=== PATIENT | female | born 1990 | race Caucasian/White ===

== ENCOUNTER 2016-11-19 08:38 | Emergency (ER) | payer SELFPAY ==
[~2016-11-19] VITALS: Ht 167.6 cm; Wt 55.0 kg
[2016-11-19 08:47] VITALS: BP 102/50; PULSE 121; RESP 26; TEMP 97.4; O2SAT 97
[2016-11-19] MEDS ORDERED: METH40TA PO (08:58)
[2016-11-19 09:05] VITALS: RESP 16; O2SAT 99
[2016-11-19] MEDS ORDERED: SODIUM CHLOR 0.9% 1000 ML INJ 1,000 ML IV SCH (09:08)
[2016-11-19] MEDS ORDERED: SODIUM CHLORIDE 0.9% FLUSH 10 ML FLUSH IV FLUSH PRN (09:15)
[2016-11-19] MEDS ORDERED: ONDANSETRON HCL 4 MG/2 ML VIAL IVP ONE (09:15)
[2016-11-19 09:40] LABS: AUTOMATED NEUTROPHIL # 7.8 TH/MM3 (1.8-7.7); BASOPHIL # 0.1 TH/MM3 (0-0.2); BASOPHIL % 0.6 % (0.0-2.0); EOSINOPHIL # 0.1 TH/MM3 (0-0.4); EOSINOPHIL % 0.6 % (0.0-4.0); HEMATOCRIT 48.5 % (35.0-46.0); HEMO FLAGS DIFF FINAL; LYMPHOCYTE # 2.5 TH/MM3 (1.0-4.8); MEAN CELL VOLUME 86.5 FL (80.0-100.0); MEAN CORPUSCULAR HEMOGLOBIN 29.5 PG (27.0-34.0); MEAN CORPUSCULAR HGB CONC 34.1 % (32.0-36.0); MONO % 7.2 % (0.0-8.0); NEUT % 69.6 % (16.0-70.0); PLATELET COUNT 339 TH/MM3 (150-450); RED CELL DISTRIBUTION WIDTH 13.5 % (11.6-17.2); WHITE BLOOD COUNT 11.2 TH/MM3 (4.0-11.0)
[2016-11-19 09:57] LABS: BICARBONATE 20.4 MEQ/L (21.0-32.0); POTASSIUM 3.5 MEQ/L (3.5-5.1)
[2016-11-19] MEDS ORDERED: LORazepam 2 MG/ML VIAL IV PUSH ONE (10:00)
--- NOTE | 2016-11-19 10:32 | PD ---
HPI Chief Complaint: Medical Clearance Time Seen by Provider: 08:58 Travel History International Travel<30 days: No Contact w/Intl Traveler<30days: No Traveled to known affect area: No History of Present Illness HPI Patient is a 26 year old female presents to the ER states that she hasn't had her methadone in "a while" and states that she is starting to withdrawal. Tachycardic and agitated on arrival is complaining that she can "feel the blood moving through her arms and her legs". States that she jsut moved to town and cannot find any mehtadone clinics in town. patient also admitted to nursing that she has been treating herself with street drugs. Denies CP/SOB/ABdominal pain. Endorses nausea without vomiting and endorses diarrhea. PFSH Past Medical History Medical History: Denies Significant Hx ?: Not LMP: 10/28/16 Past Surgical History Surgical History: No Previous Surgery Social History Alcohol Use: No Tobacco Use: Yes (ppd) Substance Use: No Allergies-Medications (Allergen,Severity, Reaction): Coded Allergies: No Known Allergies (Unverified , 11/19/16) Reported Meds & Prescriptions Reported Meds & Active Scripts Active Reported Methadone (Methadone HCl) 40 Mg Tab 60 Mg PO DAILY Review of Systems Except as stated in HPI: all other systems reviewed are Neg Physical Exam Narrative GENERAL: WD/WN agitated, but cooperative. SKIN: Warm and dry. HEAD: Atraumatic. Normocephalic. EYES: Pupils equal and round. No scleral icterus. No injection or drainage. ENT: No nasal bleeding or discharge. Mucous membranes pink and moist. NECK: Trachea midline. No JVD. CARDIOVASCULAR: Regular rhythm with tachycardia when she sits up or talks. No MGR. RESPIRATORY: No accessory muscle use. Clear to auscultation. Breath sounds equal bilaterally. GASTROINTESTINAL: Abdomen soft, non-tender, nondistended. Hepatic and splenic margins not palpable. MUSCULOSKELETAL: Extremities without clubbing, cyanosis, or edema. No obvious deformities. NEUROLOGICAL: Awake and alert. No obvious cranial nerve deficits. Motor grossly within normal limits. Five out of 5 muscle strength in the arms and legs. Normal speech. PSYCHIATRIC: Appropriate mood and affect; insight and judgment normal. Data Data Last Documented VS Vital Signs Date Time Temp Pulse Resp B/P (MAP) Pulse Ox O2 Delivery O2 Flow Rate FiO2 11/19/16 11:15 10/7/17 11:00 82 16 97 Room Air 11/19/16 08:47 97.4 Orders Orders Basic Metabolic Panel (Bmp) (11/19/16 09:08) Beta Hcg (Quant/Titer) (11/19/16 09:08) Complete Blood Count With Diff (11/19/16 09:08) Iv Access Insert/Monitor (11/19/16 09:08) Ecg Monitoring (11/19/16 09:08) Oximetry (11/19/16 09:08) Ondansetron Inj (Zofran Inj) (11/19/16 09:15) Sodium Chlor 0.9% 1000 Ml Inj (Ns 1000 M (11/19/16 09:08) Sodium Chloride 0.9% Flush (Ns Flush) (11/19/16 09:15) Electrocardiogram (11/19/16 09:08) Lorazepam Inj (Ativan Inj) (11/19/16 10:00) Labs Laboratory Tests Test 11/19/16 09:20 White Blood Count 11.2 TH/MM3 Red Blood Count 5.60 MIL/MM3 Hemoglobin 16.5 GM/DL Hematocrit 48.5 % Mean Corpuscular Volume 86.5 FL Mean Corpuscular Hemoglobin 29.5 PG Mean Corpuscular Hemoglobin Concent 34.1 % Red Cell Distribution Width 13.5 % Platelet Count 339 TH/MM3 Mean Platelet Volume 8.7 FL Neutrophils (%) (Auto) 69.6 % Lymphocytes (%) (Auto) 22.0 % Monocytes (%) (Auto) 7.2 % Eosinophils (%) (Auto) 0.6 % Basophils (%) (Auto) 0.6 % Neutrophils # (Auto) 7.8 TH/MM3 Lymphocytes # (Auto) 2.5 TH/MM3 Monocytes # (Auto) 0.8 TH/MM3 Eosinophils # (Auto) 0.1 TH/MM3 Basophils # (Auto) 0.1 TH/MM3 CBC Comment DIFF FINAL Differential Comment Blood Urea Nitrogen 13 MG/DL Creatinine 0.97 MG/DL Random Glucose 89 MG/DL Calcium Level 9.6 MG/DL Sodium Level 139 MEQ/L Potassium Level 3.5 MEQ/L Chloride Level 108 MEQ/L Carbon Dioxide Level 20.4 MEQ/L Anion Gap 11 MEQ/L Estimat Glomerular Filtration Rate 71 ML/MIN Human Chorionic Gonadotropin, Quant 1 MIU/ML MDM Medical Decision Making Medical Screen Exam Complete: Yes Emergency Medical Condition: Yes Differential Diagnosis Agitation, opiate withdrawal, dehydration, electrolyte imbalance. Narrative Course Patient roomed in ED, given zofran, fluids, ativan. Feeling much better on reassess. Her labs are reassuring. Discussed need for follow up with a PCP, [facility] or [facility]. She is stable for discharge. Diagnosis Primary Impression: Opiate withdrawal Referrals: [facility] Disposition: 01 DISCHARGE HOME Condition: Stable Claude Silva MD Nov 19, 2016 10:32
[2016-11-19 11:00] VITALS: BP 110/78; PULSE 82; RESP 16; O2SAT 97
--- NOTE | 2016-11-19 14:18 | EKG ---
Date Performed: 11/19/2016 Time Performed: 09:35:41 PTAGE: 26 years EKG: Sinus rhythm POSSIBLE RIGHT VENTRICULAR CONDUCTION DELAY MINIMAL ST DEPRESSION BORDERLINE ECG NO PREVIOUS TRACING DOCTOR: Prasad Peralta Interpretating Date/Time 11/19/2016 14:14:31
== END 2016-11-19 11:15 | disposition home or self-care (01) ==
LOC: NEPC 08:38
DX: F11.23 Opioid dependence with withdrawal (principal)
CPT/HCPCS: 80048; 84702; 85025; 93005; 96361; 96374; 96375; 99284; J2060; J2405; J7030

== ENCOUNTER 2017-03-05 12:01 | Emergency (ER) | payer SELFPAY ==
[~2017-03-05] VITALS: Ht 170.2 cm; Wt 50.0 kg
[~2017-03-05 12:01] MED LIST: METH40TA PO
[2017-03-05 12:03] VITALS: BP 132/82; PULSE 154; RESP 16; TEMP 97.6; O2SAT 97
--- NOTE | 2017-03-05 12:39 | PD ---
HPI Chief Complaint: Cold / Flu Symptoms Time Seen by Provider: 12:26 Travel History International Travel<30 days: No Contact w/Intl Traveler<30days: No Traveled to known affect area: No History of Present Illness HPI 26-year-old female presents the emergency department with flulike symptoms which suddenly started this morning. Patient states congestion, sore throat, and "shakiness". Patient has obvious IV drug use cleary on both upper extremities. When asked the patient days for questionable regarding IV drug use but admits to using heroin last evening. Patient vital signs shows her to be afebrile, however heart rate was 153. Blood pressure stable. She denies significant chest pain or cough. She has no known drug allergies. PFSH Past Medical History ?: Not Social History Alcohol Use: No Tobacco Use: Yes (ppd) Substance Use: No Allergies-Medications (Allergen,Severity, Reaction): Coded Allergies: No Known Allergies (Unverified Allergy, Unknown, 03/05/17) Reported Meds & Prescriptions Reported Meds & Active Scripts Active Reported Methadone (Methadone HCl) 40 Mg Tab 60 Mg PO DAILY Review of Systems Except as stated in HPI: all other systems reviewed are Neg General / Constitutional: Positive: Chills, No: Fever Eyes: No: Visual changes HENT: Positive: Headaches, Sore Throat, Rhinitis, Rhinorrhea, Congestion, No: Nosebleed, Neck Stiffness, Neck Pain, Dental Difficulties, Earache Cardiovascular: No: Chest Pain or Discomfort Respiratory: No: Cough, Shortness of Breath, Wheezing Gastrointestinal: No: Nausea, Vomiting, Diarrhea, Abdominal Pain Genitourinary: No: Dysuria Musculoskeletal: No: Pain Skin: Positive Lesions (old injection cleary, but no acute signs of cellulitis or abscess.), No Rash Neurologic: No: Weakness Psychiatric: No: Depression Endocrine: No: Polydipsia Hematologic/Lymphatic: No: Easy Bruising Physical Exam Narrative GENERAL: Patient appears anxious and jittery, and appears under the influence. SKIN: Warm and dry. Normal color. Normal turgor. There is multiple old IV drug use cleary to both upper extremities without acute signs of cellulitis or abscess. HEAD: Atraumatic. Normocephalic. EYES: Pupils equal and round. No scleral icterus. No injection or drainage. ENT: No nasal bleeding or discharge. Mucous membranes pink and moist. Pharynx is clear. Airway is patent. TMs are clear bilaterally. NECK: Trachea midline. Supple and nontender. CARDIOVASCULAR: Tachycardic rate and regular rhythm. RESPIRATORY: No accessory muscle use. Clear to auscultation. Breath sounds equal bilaterally. GASTROINTESTINAL: Abdomen soft, non-tender, nondistended. Hepatic and splenic margins not palpable. MUSCULOSKELETAL: Extremities without clubbing, cyanosis, or edema. No obvious deformities. NEUROLOGICAL: Awake and alert. No obvious cranial nerve deficits. Motor grossly within normal limits. Five out of 5 muscle strength in the arms and legs. Normal speech. PSYCHIATRIC: Appropriate mood and affect; insight and judgment normal. Data Data Last Documented VS Vital Signs Date Time Temp Pulse Resp B/P (MAP) Pulse Ox O2 Delivery O2 Flow Rate FiO2 03/05/17 13:27 100 Room Air 03/05/17 12:52 135 18 03/05/17 12:03 97.6 Orders Orders Sepsis Workup Initiated (03/05/17 ) Electrocardiogram (03/05/17 12:45) Complete Blood Count With Diff (03/05/17 12:45) Comprehensive Metabolic Panel (03/05/17 12:45) Prothrombin Time / Inr (Pt) (03/05/17 12:45) Act Partial Throm Time (Ptt) (03/05/17 12:45) Lactic Acid Sepsis Protocol (03/05/17 12:45) Magnesium (Mg) (03/05/17 12:45) Urinalysis - C+S If Indicated (03/05/17 12:45) Influenzae A/B Antigen (03/05/17 12:45) Blood Culture (03/05/17 12:45) Chest, Single Ap (03/05/17 12:45) Blood Glucose (03/05/17 12:45) Ecg Monitoring (03/05/17 12:45) Iv Access Insert/Monitor (03/05/17 12:45) Oximetry (03/05/17 12:45) Oxygen Administration (03/05/17 12:45) Sodium Chlor 0.9% 1000 Ml Inj (Ns 1000 M (03/05/17 12:45) Sodium Chlor 0.9% 1000 Ml Inj (Ns 1000 M (03/05/17 12:45) Lorazepam Inj (Ativan Inj) (03/05/17 12:45) Ed Urine Pregnancytest Poc (03/05/17 12:53) Labs Laboratory Tests Test 03/05/17 13:12 White Blood Count 13.6 TH/MM3 Red Blood Count 4.55 MIL/MM3 Hemoglobin 14.3 GM/DL Hematocrit 39.6 % Mean Corpuscular Volume 87.1 FL Mean Corpuscular Hemoglobin 31.3 PG Mean Corpuscular Hemoglobin Concent 36.0 % Red Cell Distribution Width 13.3 % Platelet Count 351 TH/MM3 Mean Platelet Volume 8.0 FL Neutrophils (%) (Auto) 70.9 % Lymphocytes (%) (Auto) 19.4 % Monocytes (%) (Auto) 8.6 % Eosinophils (%) (Auto) 0.6 % Basophils (%) (Auto) 0.5 % Neutrophils # (Auto) 9.7 TH/MM3 Lymphocytes # (Auto) 2.6 TH/MM3 Monocytes # (Auto) 1.2 TH/MM3 Eosinophils # (Auto) 0.1 TH/MM3 Basophils # (Auto) 0.1 TH/MM3 CBC Comment AUTO DIFF Differential Comment AUTO DIFF CONFIRMED Prothrombin Time 10.3 SEC Prothromb Time International Ratio 1.0 RATIO Activated Partial Thromboplast Time 29.0 SEC Blood Urea Nitrogen 6 MG/DL Creatinine 0.62 MG/DL Random Glucose 86 MG/DL Total Protein 7.8 GM/DL Albumin 3.5 GM/DL Calcium Level 8.8 MG/DL Magnesium Level 2.2 MG/DL Alkaline Phosphatase 89 U/L Aspartate Amino Transf (AST/SGOT) 35 U/L Alanine Aminotransferase (ALT/SGPT) 72 U/L Total Bilirubin 0.9 MG/DL Sodium Level 133 MEQ/L Potassium Level 3.9 MEQ/L Chloride Level 103 MEQ/L Carbon Dioxide Level 22.7 MEQ/L Anion Gap 7 MEQ/L Estimat Glomerular Filtration Rate 118 ML/MIN Lactic Acid Level 0.5 mmol/L [facility] Medical Decision Making Medical Screen Exam Complete: Yes Emergency Medical Condition: Yes Medical Record Reviewed: Yes Differential Diagnosis Possible sepsis. Influenza. Substance abuse. Narrative Course Labs ordered per sepsis protocol. IV access is obtained patient is given 1 mg lorazepam IV as well as 2 L normal saline bolus. Labs ordered including CBC, CMP, lactic acid, blood cultures 2, urinalysis. Rapid influenza was ordered as well as chest x-ray. Patient got 1 L of normal saline bolus. CBC is unremarkable, CMP is unremarkable, lactic acid is normal. Rapid influenza is negative. Chest x-ray is unremarkable. Patient was to leave, and I can find no reason medically to keep her here based on the labs that I have received. Urinalysis was never obtained from the patient. Patient is felt stable for discharge. Diagnosis Primary Impression: IV drug abuse Referrals: [facility] Patient Instructions: General Instructions, Polysubstance Abuse (ED) Med/Other Pt SpecificInfo: No Meds Exist/No RX given Disposition: 01 DISCHARGE HOME Condition: Stable Bairon Martinez Mar 05, 2017 12:39
[2017-03-05] MEDS ORDERED: SODIUM CHLOR 0.9% 1000 ML INJ 1,000 ML IV ONE (12:45)
[2017-03-05] MEDS ORDERED: SODIUM CHLOR 0.9% 1000 ML INJ 800 ML IV ONE (12:45)
[2017-03-05] MEDS ORDERED: LORazepam 2 MG/ML VIAL IV PUSH ONE (12:45)
--- NOTE | 2017-03-05 13:15 | RADRPT ---
EXAM DATE/TIME: 03/05/2017 13:07 [facility] COMPARISON: No previous studies available for comparison. INDICATIONS : Fever. Chest pain. MEDICAL HISTORY : None. SURGICAL HISTORY : None. ENCOUNTER: Initial ACUITY: 1 week PAIN SCORE: 5/10 LOCATION: Bilateral chest FINDINGS: The lungs are clear without infiltrate, nodule, or mass. There is no appreciable pleural effusion fo r technique. Heart and mediastinum are unremarkable. CONCLUSION: No acute cardiopulmonary disease. Luis F Lake MD on March 05, 2017 at 13:13 Board Certified Radiologist. This report was verified electronically.
[2017-03-05 13:27] VITALS: O2SAT 100
[2017-03-05 13:28] LABS: AUTOMATED NEUTROPHIL # 9.7 TH/MM3 (1.8-7.7); BASOPHIL # 0.1 TH/MM3 (0-0.2); BASOPHIL % 0.5 % (0.0-2.0); EOSINOPHIL # 0.1 TH/MM3 (0-0.4); EOSINOPHIL % 0.6 % (0.0-4.0); HEMATOCRIT 39.6 % (35.0-46.0); HEMOGLOBIN 14.3 GM/DL (11.6-15.3); LYMPH % 19.4 % (9.0-44.0); LYMPHOCYTE # 2.6 TH/MM3 (1.0-4.8); MEAN CELL VOLUME 87.1 FL (80.0-100.0); MEAN CORPUSCULAR HEMOGLOBIN 31.3 PG (27.0-34.0); MONO % 8.6 % (0.0-8.0); MONOCYTE # 1.2 TH/MM3 (0-0.9); NEUT % 70.9 % (16.0-70.0); PLATELET COUNT 351 TH/MM3 (150-450); RED BLOOD COUNT 4.55 MIL/MM3 (4.00-5.30); RED CELL DISTRIBUTION WIDTH 13.3 % (11.6-17.2); WHITE BLOOD COUNT 13.6 TH/MM3 (4.0-11.0)
[2017-03-05 13:35] LABS: PROTHROMBIN TIME - PATIENT 10.3 SEC (9.8-11.6)
[2017-03-05 13:42] LABS: ALBUMIN 3.5 GM/DL (3.4-5.0); ALT (GPT) 72 U/L (10-53); AST (GOT) 35 U/L (15-37); BICARBONATE 22.7 MEQ/L (21.0-32.0); BLOOD UREA NITROGEN 6 MG/DL (7-18); CALCIUM 8.8 MG/DL (8.5-10.1); CHLORIDE 103 MEQ/L (98-107); CREATININE 0.62 MG/DL (0.50-1.00); GLOMERULAR FILTRATION RATE 118 ML/MIN (>89); GLUCOSE,RANDOM 86 MG/DL (74-106); MAGNESIUM 2.2 MG/DL (1.5-2.5); SODIUM (NA) 133 MEQ/L (136-145)
[2017-03-05 13:45] LABS: ALKALINE PHOSPHATASE 89 U/L (45-117); TOTAL BILIRUBIN ADULT 0.9 MG/DL (0.2-1.0); TOTAL PROTEIN 7.8 GM/DL (6.4-8.2)
--- NOTE | 2017-03-06 20:27 | EKG ---
Date Performed: 03/05/2017 Time Performed: 13:10:50 PTAGE: 26 years EKG: SINUS TACHYCARDIA POSSIBLE RIGHT VENTRICULAR CONDUCTION DELAY Compared to previous tracing, the patient is now tachycardic ABNORMAL RHYTHM ECG PREVIOUS TRACING : 11/19/2016 09.35 DOCTOR: Alma Pope Interpretating Date/Time 03/06/2017 20:25:34
== END 2017-03-05 15:15 | disposition home or self-care (01) ==
LOC: NEPD 12:01
DX: F19.10 Other psychoactive substance abuse, uncomplicated (principal); J02.9 Acute pharyngitis, unspecified; R07.9 Chest pain, unspecified; R00.0 Tachycardia, unspecified
CPT/HCPCS: 71045; 80053; 83605; 83735; 85025; 85610; 85730; 87804; 93005; 96361; 96374; 99285; J2060; J7030

== ENCOUNTER 2017-06-07 23:34 | Observation (INO) | payer SELFPAY ==
[~2017-06-07] VITALS: Ht 170.2 cm; Wt 52.0 kg
[2017-06-07 23:52] VITALS: BP 130/74; PULSE 93; RESP 18; TEMP 98.1; O2SAT 96
[2017-06-08 01:00] LABS: BACTERIA, URINE RARE /hpf; BILIRUBIN, URINE NEG (NEG); BLOOD, URINE NEG (NEG); GLUCOSE,URINE NEG (NEG); KETONE, URINE NEG (NEG); MUCUS URINE FEW /lpf (OCC); NITRITE,URINE NEG (NEG); PH, URINE 5.5 (5.0-8.5); SQUAMOUS EPITHELIAL CELL URINE 1 /hpf (0-5); TRANSITIONAL EPI CELLS, URINE <1 /hpf; URINE COLOR YELLOW (YELLW/STRAW); URINE LEUKOCYTE ESTERASE SMALL (NEG)
[2017-06-08] MEDS ORDERED: SULFAMETHOXAZOLE-TRIMETHOPRIM DS 800-160 MG TAB PO ONE (01:15)
--- NOTE | 2017-06-08 01:16 | PD ---
HPI . abdo pain , neck pain Chief Complaint: Back/ Neck Pain or Injury Time Seen by Provider: 00:38 Travel History International Travel<30 days: No Contact w/Intl Traveler<30days: No Traveled to known affect area: No History of Present Illness HPI Patient is a 27-year-old female who is complaining of right-sided flank to right abdomen pain for the last few days she says she thinks she has a urine infection. I asked her how to she noted that. She is able people tell me that is what I have. She denies ever having a UTI she denies dysuria. She she has no fever no shaking chills hematuria. Patient is unable to report when her last menstrual period was she says it has been months and she has had one. Patient also after I talked to her about her urine complaint says I think I have a needle broken off in my left neck. She is an IVDA drug abuser and she says just yesterday she is sure that she snapped the needle up in her neck. No bleeding actively no obvious swelling at the location. Patient seems currently intoxicated with some unknown substance PFSH Past Medical History Anxiety: Yes Diminished Hearing: No Hepatitis: Yes (C) Musculoskeletal: Yes (Scoliosis) Immunizations Current: Yes Tetanus Vaccination: Unknown ?: Not LMP: 4 or 5 months ago Past Surgical History Oral Surgery: Yes (wisdom teeth) Social History Alcohol Use: No Tobacco Use: Yes (1 PPD) Substance Use: Yes (IV HEROIN, XANAX, CRACK COCAINE) Allergies-Medications (Allergen,Severity, Reaction): Coded Allergies: No Known Allergies (Unverified Allergy, Unknown, 06/08/17) Reported Meds & Prescriptions Reported Meds & Active Scripts Active No Active Prescriptions or Reported Medications Review of Systems Except as stated in HPI: all other systems reviewed are Neg Physical Exam Narrative GENERAL: pt slurring as if sedated on possible opioid overdose SKIN: Warm and dry. HEAD: Atraumatic. Normocephalic. EYES: Pupils equal and round. No scleral icterus. No injection or drainage. ENT: No nasal bleeding or discharge. Mucous membranes pink and moist. NECK: Trachea midline. No JVD. left neck has no obvious swelling no obvious FB , CARDIOVASCULAR: Regular rate and rhythm. RESPIRATORY: No accessory muscle use. Clear to auscultation. Breath sounds equal bilaterally. GASTROINTESTINAL: Abdomen RUQ pain tenderness soft, non-tender, nondistended. Hepatic and splenic margins not palpable. MUSCULOSKELETAL: Extremities without clubbing, cyanosis, or edema. No obvious deformities. NEUROLOGICAL: Awake and alert. No obvious cranial nerve deficits. Motor grossly within normal limits. Five out of 5 muscle strength in the arms and legs. Normal speech. PSYCHIATRIC: Appropriate mood and affect; insight and judgment normal. Data Data Last Documented VS Vital Signs Date Time Temp Pulse Resp B/P (MAP) Pulse Ox O2 Delivery O2 Flow Rate FiO2 06/08/17 05:00 92 16 94/59 (71) 100 Room Air 06/07/17 23:52 98.1 Orders Orders Urinalysis - C+S If Indicated (06/08/17 00:38) Urine Culture (06/08/17 00:45) Soft Tissue Neck (06/08/17 ) Sulfamet-Trimeth Ds 800-160 Mg (Bactrim (06/08/17 01:15) Ed Urine Pregnancytest Poc (06/08/17 01:08) Complete Blood Count With Diff (06/08/17 01:16) Comprehensive Metabolic Panel (06/08/17 01:16) Lipase (06/08/17 01:16) Ct Soft Tiss Neck W/O Iv Cont (06/08/17 ) Place In Observation (06/08/17 ) Vital Signs (Adult) Q4H (06/08/17 06:48) Activity Oob With Assistance (06/08/17 06:48) Sodium Chlor 0.9% 1000 Ml Inj (Ns 1000 M (06/08/17 06:48) Sodium Chloride 0.9% Flush (Ns Flush) (06/08/17 07:00) Sodium Chloride 0.9% Flush (Ns Flush) (06/08/17 09:00) Acetaminophen (Tylenol) (06/08/17 07:00) Ondansetron Inj (Zofran Inj) (06/08/17 07:00) Basic Metabolic Panel (Bmp) (06/09/17 06:00) Complete Blood Count With Diff (06/09/17 06:00) Naloxone Inj (Narcan Inj) (06/08/17 07:00) Docusate Sodium-Senna (Alison-Colace) (06/08/17 09:00) Magnesium Hydroxide Liq (Milk Of Magnesi (06/08/17 07:00) Sennosides (Senokot) (06/08/17 07:00) Bisacodyl Supp (Dulcolax Supp) (06/08/17 07:00) Lactulose Liq (Lactulose Liq) (06/08/17 07:00) Sulfamet-Trimeth Ds 800-160 Mg (Bactrim (06/08/17 13:00) Admit Order (Ed Use Only) (06/08/17 06:52) Morphine Inj (Morphine Inj) (06/08/17 07:00) Labs Laboratory Tests Test 06/08/17 00:45 06/08/17 01:25 Urine Color YELLOW Urine Turbidity CLEAR Urine pH 5.5 Urine Specific [place] 1.026 Urine Protein TRACE mg/dL Urine Glucose (UA) NEG mg/dL Urine Ketones NEG mg/dL Urine Occult Blood NEG Urine Nitrite NEG Urine Bilirubin NEG Urine Urobilinogen 2.0 MG/DL Urine Leukocyte Esterase SMALL Urine RBC 4 /hpf Urine WBC 24 /hpf Urine Squamous Epithelial Cells 1 /hpf Urine Transitional Epithelial Cells <1 /hpf Urine Bacteria RARE /hpf Urine Mucus FEW /lpf Microscopic Urinalysis Comment CULTURE INDICATED White Blood Count 8.3 TH/MM3 Red Blood Count 4.90 MIL/MM3 Hemoglobin 14.2 GM/DL Hematocrit 41.7 % Mean Corpuscular Volume 85.2 FL Mean Corpuscular Hemoglobin 29.0 PG Mean Corpuscular Hemoglobin Concent 34.1 % Red Cell Distribution Width 15.1 % Platelet Count 230 TH/MM3 Mean Platelet Volume 8.2 FL Neutrophils (%) (Auto) 48.9 % Lymphocytes (%) (Auto) 39.7 % Monocytes (%) (Auto) 7.7 % Eosinophils (%) (Auto) 3.0 % Basophils (%) (Auto) 0.7 % Neutrophils # (Auto) 4.1 TH/MM3 Lymphocytes # (Auto) 3.3 TH/MM3 Monocytes # (Auto) 0.6 TH/MM3 Eosinophils # (Auto) 0.2 TH/MM3 Basophils # (Auto) 0.1 TH/MM3 CBC Comment DIFF FINAL Differential Comment Blood Urea Nitrogen 11 MG/DL Creatinine 0.70 MG/DL Random Glucose 93 MG/DL Total Protein 7.6 GM/DL Albumin 3.6 GM/DL Calcium Level 9.1 MG/DL Alkaline Phosphatase 71 U/L Aspartate Amino Transf (AST/SGOT) 48 U/L Alanine Aminotransferase (ALT/SGPT) 116 U/L Total Bilirubin 0.6 MG/DL Sodium Level 140 MEQ/L Potassium Level 4.1 MEQ/L Chloride Level 103 MEQ/L Carbon Dioxide Level 31.0 MEQ/L Anion Gap 6 MEQ/L Estimat Glomerular Filtration Rate 102 ML/MIN Lipase 79 U/L MDM Medical Decision Making Medical Screen Exam Complete: Yes Emergency Medical Condition: Yes Differential Diagnosis pt has a UTI and a fragment of a needle in her left clavicle Internal or external jugular area , pt could have a uti vs renal colic pyelonephitis vs stone vs trauma Narrative Course pt treat for UTI bactrim and then I called Dr Tariq of CT surgery will see pt aas a consult for possible surgerical removal of 1 cm needle fragment . I admit adn pt agrees to stay Diagnosis Primary Impression: UTI (urinary tract infection) Additional Impression: Foreign body in subcutaneous tissue Admitting Information Admitting Physician Requests: Observation Patient Instructions: General Instructions, Urinary Tract Infection in Women ( ED) Scripts No Active Prescriptions or Reported Meds Brennon Thomas MD Jun 08, 2017 01:16
--- NOTE | 2017-06-08 01:43 | RADRPT ---
EXAM DATE/TIME: 06/08/2017 01:20 [facility] COMPARISON: No previous studies available for comparison. INDICATIONS : Possible needle foreign body. Patient has puncture wound supraclavicular medial chest. MEDICAL HISTORY : None. SURGICAL HISTORY : None. ENCOUNTER: Initial ACUITY: 1 day PAIN SCORE: 0/10 LOCATION: Left neck FINDINGS: Two view examination of the soft tissues of the neck demonstrates the hypopharyngeal airway to have a grossly normal configuration. The trachea is midline. Small linear radiopaque foreign body is seen adjacent to the left clavicle measuring 4-5 mm. CONCLUSION: Small needle left clavicle region. Hernan Mora MD on June 08, 2017 at 1:41 Board Certified Radiologist. This report was verified electronically.
[2017-06-08 01:46] LABS: AUTOMATED NEUTROPHIL # 4.1 TH/MM3 (1.8-7.7); BASOPHIL # 0.1 TH/MM3 (0-0.2); BASOPHIL % 0.7 % (0.0-2.0); EOSINOPHIL # 0.2 TH/MM3 (0-0.4); HEMATOCRIT 41.7 % (35.0-46.0); HEMOGLOBIN 14.2 GM/DL (11.6-15.3); LYMPH % 39.7 % (9.0-44.0); LYMPHOCYTE # 3.3 TH/MM3 (1.0-4.8); MEAN CELL VOLUME 85.2 FL (80.0-100.0); MEAN CORPUSCULAR HGB CONC 34.1 % (32.0-36.0); MEAN PLATELET VOLUME 8.2 FL (7.0-11.0); MONO % 7.7 % (0.0-8.0); MONOCYTE # 0.6 TH/MM3 (0-0.9); NEUT % 48.9 % (16.0-70.0); PLATELET COUNT 230 TH/MM3 (150-450); RED CELL DISTRIBUTION WIDTH 15.1 % (11.6-17.2); WHITE BLOOD COUNT 8.3 TH/MM3 (4.0-11.0)
[2017-06-08 02:01] LABS: ALBUMIN 3.6 GM/DL (3.4-5.0); ALT (GPT) 116 U/L (10-53); AST (GOT) 48 U/L (15-37); BLOOD UREA NITROGEN 11 MG/DL (7-18); CALCIUM 9.1 MG/DL (8.5-10.1); CHLORIDE 103 MEQ/L (98-107); GLOMERULAR FILTRATION RATE 102 ML/MIN (>89); GLUCOSE,RANDOM 93 MG/DL (74-106); SODIUM (NA) 140 MEQ/L (136-145)
[2017-06-08 02:02] LABS: ALKALINE PHOSPHATASE 71 U/L (45-117); TOTAL BILIRUBIN ADULT 0.6 MG/DL (0.2-1.0); TOTAL PROTEIN 7.6 GM/DL (6.4-8.2)
--- NOTE | 2017-06-08 03:34 | RADRPT ---
EXAM DATE/TIME: 06/08/2017 02:48 [facility] COMPARISON: SOFT TISSUE NECK, June 08, 2017, 1:20. INDICATIONS : Foreign body left neck seen on plain film. RADIATION DOSE: 15.77 CTDIvol (mGy) MEDICAL HISTORY : IV drug use. SURGICAL HISTORY : None. ENCOUNTER: Initial ACUITY: 1 day PAIN SCORE: 7/10 LOCATION: Left neck TECHNIQUE: Volumetric scanning of the neck was performed. Using automated exposure control and adjustment of th e mA and/or kV according to patient size, radiation dose was kept as low as reasonably achievable to obtain optimal diagnostic quality images. DICOM format image data is available electronically for re view and comparison. FINDINGS: NASOPHARYNX: The nasopharyngeal airway has a normal configuration. No mucosal thickening or mass is seen. OROPHARYNX: The intrinsic muscles of the tongue are symmetric. The tonsillar pillars are intact. The prevertebr al soft tissues are not thickened. LARYNX: The supraglottic, glottic, and infraglottic structures are intact. PARAPHARYNGEAL: The parapharyngeal space is intact. SALIVARY GLANDS: The parotid and submandibular glands are intact. LYMPH NODES: No enlarged or necrotic-appearing nodes. THYROID: Homogeneous enhancement without evidence of nodule. BONES: Unremarkable. Linear foreign body measuring 6 mm seen in the knee midclavicle region just deep to the skin on the left. CONCLUSION: 1. Small needle along the left midclavicle region. Hernan Mora MD on June 08, 2017 at 3:30 Board Certified Radiologist. This report was verified electronically.
[2017-06-08 05:00] VITALS: BP 94/59; PULSE 92; RESP 16; O2SAT 100
[2017-06-08] MEDS ORDERED: MAGNESIUM HYDROXIDE SUSP 30 ML CUP PO PRN (07:00)
[2017-06-08] MEDS ORDERED: BISACODYL 10 MG SUPP RECTAL PRN (07:00)
[2017-06-08] MEDS ORDERED: ACETAMINOPHEN 325 MG TAB PO PRN (07:00)
[2017-06-08] MEDS ORDERED: SENNOSIDES 8.6 MG TAB PO PRN (07:00)
[2017-06-08] MEDS ORDERED: ONDANSETRON HCL 4 MG/2 ML VIAL IVP PRN (07:00)
[2017-06-08] MEDS ORDERED: LACTULOSE SYRUP 20 GM/30 ML CUP PO PRN (07:00)
[2017-06-08] MEDS ORDERED: NALOXONE HCL 0.4 MG/ML AMP IV PUSH PRN (07:00)
[2017-06-08] MEDS ORDERED: SODIUM CHLORIDE 0.9% FLUSH 10 ML FLUSH IV FLUSH PRN (07:00)
[2017-06-08] MEDS ORDERED: MORPHINE SULFATE 2 MG/ML SYRINGE IV PUSH PRN (07:00)
[2017-06-08 07:36] VITALS: BP 101/53; PULSE 70; RESP 16; TEMP 98; O2SAT 100
[2017-06-08] MEDS: DOCUSATE SODIUM 50 MG/SENNA 8.6 MG TAB PO SCH ×2 (09:00→21:00)
[2017-06-08] MEDS: SODIUM CHLORIDE 0.9% FLUSH 10 ML FLUSH IV FLUSH SCH ×2 (10:30→21:00)
[2017-06-08] MEDS: SODIUM CHLOR 0.9% 1000 ML INJ 1,000 ML IV SCH ×2 (10:31→21:06)
[2017-06-08 13:00] VITALS: BP 111/59; PULSE 80; RESP 18; O2SAT 100
[2017-06-08] MEDS ORDERED: SULFAMETHOXAZOLE-TRIMETHOPRIM DS 800-160 MG TAB PO SCH (13:00)
[2017-06-08 14:20] VITALS: BP 99/51; PULSE 80; RESP 20; TEMP 97.6; O2SAT 96
[2017-06-08] MEDS ORDERED: NICOTINE 14 MG/24 HR PATCH T-DERMAL SCH (14:45)
--- NOTE | 2017-06-08 14:57 | HHI.HP ---
HPI Service [facility] Primary Care Physician No Primary Care Physician Admission Diagnosis FB needle LEFT clavicle area Diagnoses: Chief Complaint: Needle in neck Travel History International Travel<30 Days: No Contact w/Intl Traveler <30 Da: No Traveled to Known Affected Are: No History of Present Illness The patient is a 27-year-old female with a past medical history of IV drug use who is presenting to the hospital after injecting her neck with heroin and complaining that the needle is still in place. She says that she has been clean for 2 years but she relapsed a couple of days ago. She is unable to give a good reason for why she relapsed. She says when she was injecting into her neck the needle snapped off and she knew that it remained in her neck. She went to an outside hospital and ended up leaving AGAINST MEDICAL ADVICE because she did not like the visitation policy and waited too long to speak with a surgeon. She says her pain is controlled well at this time. She has not noticed any fevers. She says she has not had any previous infections secondary to her IV drug use. She would like to eat something. She says that she sometimes uses meth but has not done so recently. Discussed with nursing at the bedside. Review of Systems Except as stated in HPI: all other systems reviewed are Neg Past Family Social History Past Medical History Hepatitis C Scoliosis Past Surgical History [place] teeth removal Allergies: Coded Allergies: No Known Allergies (Unverified Allergy, Unknown, 06/08/17) Active Ordered Medications Current Medications Medications (Trade) Dose Ordered Sig/Keyur Route Start Time Stop Time Status Last Admin Sodium Chloride 1,000 ml @ 70 mls/hr [id number] IV 06/08/17 06:48 06/08/17 10:31 (NS Flush) 2 ml UNSCH PRN IV FLUSH 06/08/17 07:00 (NS Flush) 2 ml BID IV FLUSH 06/08/17 09:00 06/08/17 10:30 (Tylenol) 650 mg Q4H PRN PO 06/08/17 07:00 (Zofran Inj) 4 mg Q6H PRN IVP 06/08/17 07:00 (Narcan Inj) 0.4 mg UNSCH PRN IV PUSH 06/08/17 07:00 (Alison-Colace) 1 tab BID PO 06/08/17 09:00 (Milk Of Magnesia Liq) 30 ml Q12H PRN PO 06/08/17 07:00 (Senokot) 17.2 mg Q12H PRN PO 06/08/17 07:00 (Dulcolax Supp) 10 mg DAILY PRN RECTAL 06/08/17 07:00 (Lactulose Liq) 30 ml DAILY PRN PO 06/08/17 07:00 (Morphine Inj) 2 mg Q3H PRN IV PUSH 06/08/17 07:00 (Bactrim Ds 800-160 Mg) 1 tab Q12H PO 06/08/17 13:00 06/08/17 13:44 Family History CAD Social History The patient smokes half a pack per day. She does not drink alcohol. She has been using IV heroin and sometimes meth. Physical Exam Vital Signs Vital Signs Date Time Temp Pulse Resp B/P (MAP) Pulse Ox O2 Delivery O2 Flow Rate FiO2 06/08/17 14:26 06/08/17 14:20 97.6 80 20 99/51 (67) 96 06/08/17 13:00 80 18 111/59 (76) 100 Room Air 06/08/17 07:36 98.0 70 16 101/53 (69) 100 Room Air 06/08/17 05:00 92 16 94/59 (71) 100 Room Air 06/07/17 23:52 98.1 93 18 130/74 (92) 96 Physical Exam GENERAL: No distress HEAD: Atraumatic. Normocephalic. EYES: Pupils equal and round. No scleral icterus. No injection or drainage. ENT: No nasal bleeding or discharge. Mucous membranes pink and moist. NECK: Trachea midline. No JVD. left neck has no obvious swelling, no obvious FB , CARDIOVASCULAR: Regular rate and rhythm. RESPIRATORY: No accessory muscle use. Clear to auscultation. Breath sounds equal bilaterally. GASTROINTESTINAL: No tenderness, soft, nondistended. Hepatic and splenic margins not palpable. MUSCULOSKELETAL: Extremities without clubbing, cyanosis, or edema. No obvious deformities. NEUROLOGICAL: Awake and alert. No obvious cranial nerve deficits. Motor grossly within normal limits. Five out of 5 muscle strength in the arms and legs. Normal speech. Laboratory Laboratory Tests Test 06/08/17 00:45 06/08/17 01:25 Urine Color YELLOW Urine Turbidity CLEAR Urine pH 5.5 Urine Specific [place] 1.026 Urine Protein TRACE Urine Glucose (UA) NEG Urine Ketones NEG Urine Occult Blood NEG Urine Nitrite NEG Urine Bilirubin NEG Urine Urobilinogen 2.0 Urine Leukocyte Esterase SMALL Urine RBC 4 Urine WBC 24 Urine Squamous Epithelial Cells 1 Urine Transitional Epithelial Cells <1 Urine Bacteria RARE Urine Mucus FEW Microscopic Urinalysis Comment CULTURE INDICATED White Blood Count 8.3 Red Blood Count 4.90 Hemoglobin 14.2 Hematocrit 41.7 Mean Corpuscular Volume 85.2 Mean Corpuscular Hemoglobin 29.0 Mean Corpuscular Hemoglobin Concent 34.1 Red Cell Distribution Width 15.1 Platelet Count 230 Mean Platelet Volume 8.2 Neutrophils (%) (Auto) 48.9 Lymphocytes (%) (Auto) 39.7 Monocytes (%) (Auto) 7.7 Eosinophils (%) (Auto) 3.0 Basophils (%) (Auto) 0.7 Neutrophils # (Auto) 4.1 Lymphocytes # (Auto) 3.3 Monocytes # (Auto) 0.6 Eosinophils # (Auto) 0.2 Basophils # (Auto) 0.1 CBC Comment DIFF FINAL Differential Comment Blood Urea Nitrogen 11 Creatinine 0.70 Random Glucose 93 Total Protein 7.6 Albumin 3.6 Calcium Level 9.1 Alkaline Phosphatase 71 Aspartate Amino Transf (AST/SGOT) 48 Alanine Aminotransferase (ALT/SGPT) 116 Total Bilirubin 0.6 Sodium Level 140 Potassium Level 4.1 Chloride Level 103 Carbon Dioxide Level 31.0 Anion Gap 6 Estimat Glomerular Filtration Rate 102 Lipase 79 Date/Time Source Procedure Growth Status 06/08/17 00:45 Urine Clean Catch Urine Culture Pending Received Result Diagram: 06/08/17 0125 06/08/17 0125 Imaging Last Impressions Soft Tissue Neck X-Ray 06/08/17 0000 Signed Impressions: Service Date/Time: May 01:20 - CONCLUSION: Small needle left clavicle region. Hernan Mora MD Neck CT 06/08/17 0000 Signed Impressions: Service Date/Time: May 02:48 - CONCLUSION: 1. Small needle along the left midclavicle region. MD Volodymyr Hanna VTE Risk Assessment Caprini VTE Risk Assessment: Mod/High Risk (score >= 2) Caprini Risk Assessment Model Point Value = 1 Point Value = 2 Point Value = 3 Point Value = 5 Age 41-60 Minor surgery BMI > 25 kg/m2 Swollen legs Varicose veins or History of unexplained or recurrent spontaneous Oral contraceptives or hormone replacement Sepsis (< 1 month) Serious lung disease, including pneumonia (< 1 month) Abnormal pulmonary function Acute myocardial infarction Congestive heart failure (< 1 month) History of inflammatory bowel disease Medical patient at bed rest Age 61-74 Arthroscopic surgery Major open surgery (> 45 min) Laparoscopic surgery (> 45 min) Malignancy Confined to bed (> 72 hours) Immobilizing plaster cast Central venous access Age >= 75 History of VTE Family history of VTE Factor V Leiden Prothrombin [id number] Lupus anticoagulant Anticardiolipin antibodies Elevated serum homocysteine Heparin-induced thrombocytopenia Other congenital or acquired thrombophilia Stroke (< 1 month) Elective arthroplasty Hip, pelvis, or leg fracture Acute spinal cord injury (< 1 month) Prophylaxis Regimen Total Risk Factor Score Risk Level Prophylaxis Regimen 0-1 Low Early ambulation 2 Moderate Order ONE of the following: *Sequential Compression Device (SCD) *Heparin 5000 units SQ BID 3-4 Higher Order ONE of the following medications: *Heparin 5000 units SQ TID *Enoxaparin/Lovenox 40 mg SQ daily (WT < 150 kg, CrCl > 30 mL/min) *Enoxaparin/Lovenox 30 mg SQ daily (WT < 150 kg, CrCl > 10-29 mL/min) *Enoxaparin/Lovenox 30 mg SQ BID (WT < 150 kg, CrCl > 30 mL/min) AND/OR *Sequential Compression Device (SCD) 5 or more Highest Order ONE of the following medications: *Heparin 5000 units SQ TID (Preferred with Epidurals) *Enoxaparin/Lovenox 40 mg SQ daily (WT < 150 kg, CrCl > 30 mL/min) *Enoxaparin/Lovenox 30 mg SQ daily (WT < 150 kg, CrCl > 10-29 mL/min) *Enoxaparin/Lovenox 30 mg SQ BID (WT < 150 kg, CrCl > 30 mL/min) AND *Sequential Compression Device (SCD) Assessment and Plan Assessment and Plan Foreign body in neck S/t IV heroin injection at the location. Confirmed on imaging. - CT surgery consulted by ED. They recommend general surgery consult which has been placed. - pain control as needed. IV drug use The pt says she recently relapsed. - cessation instruction. - treat withdrawal as needed with clonidine as needed. Elevated LFTs Likely s/t HCV. - trend. Tobacco abuse The pt smokes half a pack a day. - cessation instruction. - nicotine patch. PPx: SCDs Code Status Full Discussed Condition With Pt, nurse Patrice Romo DO Jun 08, 2017 14:57
[2017-06-08] MEDS ORDERED: cefTRIAXone INJ 1,000 MG in SODIUM CHLORIDE 0.9% INJ 100 ML IV SCH (15:00)
[2017-06-08 16:19] VITALS: BP 101/53; PULSE 81; RESP 20; TEMP 98; O2SAT 96
[2017-06-08] MEDS ORDERED: LORazepam 2 MG/ML VIAL IM ONE (16:30)
[2017-06-08] MEDS ORDERED: LORazepam 2 MG/ML VIAL IV PUSH ONE (17:15)
[2017-06-08 19:45] VITALS: BP 93/54; PULSE 96; RESP 16; TEMP 98.4; O2SAT 100
--- NOTE | 2017-06-08 19:57 | PD.CAR.PN ---
CVT Progress Note Subjective/Hospital Course: 27-year-old female with a very tiny segment of the needle and mid clavicular area soft tissue alongside the clavicle. Patient states she was shooting IV drugs in needle broke off This is a very tiny thin piece and there is no medical reason to remove this Attempt to get it out with causeway more damage than actual needle itself and risk-benefit ratio goes against surgery Most patients will work foreign bodies out on their own because of body reaction and inflammation from time to time the small foreign bodies will be spit out through the skin years after day got lodged. However this is so tiny that it is not going to cause any problems stay [employer] and be of no further medical or clinical consequence Thanks J Objective: Vital Signs Date Time Temp Pulse Resp B/P (MAP) Pulse Ox O2 Delivery O2 Flow Rate FiO2 06/08/17 19:45 98.4 96 16 93/54 (67) 100 06/08/17 16:19 98.0 81 20 101/53 (69) 96 06/08/17 14:26 06/08/17 14:20 97.6 80 20 99/51 (67) 96 06/08/17 13:00 80 18 111/59 (76) 100 Room Air 06/08/17 07:36 98.0 70 16 101/53 (69) 100 Room Air 06/08/17 05:00 92 16 94/59 (71) 100 Room Air 06/07/17 23:52 98.1 93 18 130/74 (92) 96 Result Diagram: 06/08/17 0125 06/08/17 0125 Tessie Blanco MD Jun 08, 2017 19:57
--- NOTE | 2017-06-08 22:22 | PD.AMA ---
Against Medical Advice Note Discharge Disposition: Against Medical Advice Pt Condition on Discharge: Guarded AMA Statement Patient Belkys Talbot has decided to leave the hospital against medical advice. This patient has the capacity to refuse care and understands the risks of leaving, including permanent disability and/or , and has had an opportunity to ask questions about her condition. The patient has been informed that she may return for care at any time, and follow up has been arranged/advised. Esthela Scott Jun 08, 2017 22:22
[2017-06-09] MEDS ORDERED: REMOVE OLD PATCH T-DERMAL SCH (09:00)
== END 2017-06-08 22:15 | disposition left against medical advice (07) ==
LOC: NEPC 23:34 → NEDA 06-08 06:55 → NEDH 06-08 12:39 → NEPFCDU 06-08 14:30
PROVIDERS: ADMIT Hospitalist; ATTEND Hospitalist
DX: N39.0 Urinary tract infection, site not specified (principal); S10.95XA Superficial foreign body of unspecified part of neck, initial encounter; B19.20 Unspecified viral hepatitis C without hepatic coma; R79.89 Other specified abnormal findings of blood chemistry; F17.210 Nicotine dependence, cigarettes, uncomplicated; F19.10 Other psychoactive substance abuse, uncomplicated; F11.90 Opioid use, unspecified, uncomplicated; F15.90 Other stimulant use, unspecified, uncomplicated; Z82.49 Family history of ischemic heart disease and other diseases of the circulatory system
CPT/HCPCS: 70360; 70490; 80053; 81001; 83690; 84703; 85025; 87086; 96361; 96365; 96375; 99285; G0378; J0696; J2060; J7030